=== PATIENT | female | born 1975 ===

== ENCOUNTER 2019-01-17 16:38 | Emergency (ER) | payer SELFPAY ==
[~2019-01-17] VITALS: Ht 160 cm; Wt 61.4 kg
[~2019-01-17 16:38] MED LIST: NO MEDS
[2019-01-17 16:41] VITALS: BP 133/79; PULSE 74; RESP 16; Ht 160 cm; Wt 61.4 kg
== END 2019-01-17 16:47 | disposition left against medical advice (07) ==
LOC: FTE 16:38
DX: Z53.21 Procedure and treatment not carried out due to patient leaving prior to being seen by health care provider (principal)